=== PATIENT | male | born 1980 | race African-American/Black ===

== ENCOUNTER 2017-03-03 18:32 | Emergency (ER) | payer BC ==
[~2017-03-03] VITALS: Ht 172.7 cm; Wt 69.7 kg
[2017-03-03 18:36] VITALS: BP 115/77; TEMP 99
[2017-03-03 19:18] LABS: INFLUENZA A NEGATIVE; INFLUENZA B NEGATIVE
[2017-03-03 19:40] VITALS: PULSE 74
== END 2017-03-03 19:40 | disposition home or self-care (01) ==
LOC: COL.ER 18:32
PROVIDERS: Physician Assistant
DX: J11.1 Influenza due to unidentified influenza virus with other respiratory manifestations (principal)